=== PATIENT | male | born 1965 | race Two or more races ===

== ENCOUNTER 2020-06-27 22:11 | Inpatient (IN) | payer OTHER ==
[~2020-06-27] VITALS: Ht 162.6 cm; Wt 81.3 kg
[2020-06-28 02:10] VITALS: BP 146/87
--- NOTE | 2020-06-28 02:20 | NUR ---
RN ADMITTING NOTES PATIENT RECEIVED DIRECT ADMIT FROM [facility] VIA GURNEY ACCOMPANIED BY TRANSPORTERS. PATIENT A/O X 4, STABLE ON RA WITH BREATHING EVEN AND UNLABORED, NO SOB NOTED. NO SIGNS OF ACUTE DISTRESS. NO COMPLAINTS OF PAIN OR DISCOMFORT AT THE MOMENT. IV LOCATED ON [facility] #18. BELONGINGS ACCOUNTED FOR. VITALS TAKEN. SKIN ASSESSMENT DONE. PATIENT ORIENTED TO ROOM AND STAFF. SAFETY PRECAUTIONS IN PLACE WITH BED IN LOWEST POSITION, CALL LIGHT WITHIN REACH, BREAKS ON, SIDE RAILS UP. AWAITING ADMITTING ORDERS.
[2020-06-28] MEDS ORDERED: HYDROMORPHONE INJ 2 MG/ML DISP.SYRIN IV PRN (03:00)
[2020-06-28] MEDS ORDERED: Z GUARD REMEDY 2 OZ OINT TP PRN (03:00)
[2020-06-28] MEDS ORDERED: ACETAMINOPHEN 325 MG TABLET PO PRN (03:00)
[2020-06-28] MEDS ORDERED: ZOLPIDEM TARTRATE 5 MG TABLET PO PRN (03:00)
[2020-06-28] MEDS ORDERED: IV NS 0.9% 1,000 ML IV PRN (03:00)
[2020-06-28] MEDS ORDERED: ONDANSETRON HCL/PF 4 MG/2 ML VIAL IVP PRN (03:00)
[2020-06-28] MEDS ORDERED: MAGNESIUM HYDROXIDE 30 ML UDC PO PRN (03:00)
[2020-06-28] MEDS ORDERED: HYDROCODONE/APAP 5/325MG TABLET PO PRN (03:00)
[2020-06-28] MEDS ORDERED: MAG HYDROX/AL HYDROX/SIMETH 30 ML UDC PO PRN (03:00)
[2020-06-28] MEDS ORDERED: PIPERACILLIN /TAZOBACTAM 3.375 G VIAL IV ONE (04:18)
[2020-06-28] MEDS ORDERED: PIPERACILLIN /TAZOBACTAM 3.375 G in IV D5W 50 ML IV ONE (04:30)
[2020-06-28] MEDS ORDERED: PIPERACILLIN /TAZOBACTAM 3.375 G in IV D5W 50 ML IV SCH (06:00)
--- NOTE | 2020-06-28 06:54 | NUR ---
RN CLOSING NOTES PATIENT IN BED RESTING A/O X 4. ON RA WITH BREATHING EVEN AND UNLABORED, NO SOB NOTED. NO SIGNS OF ACUTE DISTRESS. NO COMPLAINTS OF PAIN OR DISCOMFORT. IV LOCATED ON L AC #18 RUNNING NS @ 90 ML/HR. PATIENT KEPT NPO THROUGHOUT THE NIGHT. SAFETY PRECAUTIONS IN PLACE WITH BED IN LOWEST POSITION, CALL LIGHT WITHIN REACH, BREAKS ON, SIDE RAILS UP. WILL ENDORSE TO ONCOMING SHIFT ABOUT EFREN.
--- NOTE | 2020-06-28 07:15 | NUR ---
MS RN NOTES PATIENT IN BED , HEAD OF BED ELEVATED , ALERT ORIENTED X 4. NO ACUTE DISTRESS NOTED. BREATHING UNLABORED. NO SOB NOTED. IV ACCESS PATENT AND INTACT, NO REDNESS NO SWELLING , NO BLEEDING NOTED. SAFETY MEASURES IN PLACE. CALL LIGHT WITHIN REACH. WILL CONTINUE TO MONITOR ACCORDINGLY.
[2020-06-28 08:00] VITALS: BP 106/72
--- NOTE | 2020-06-28 09:08 | NUR ---
WOUND CARE CONSULT: PT PRESENTS WITH PERIANAL/PERINEAL REDNESS, PRESENT ON ADMISSION. NO DRAINAGE NOTED AT THIS TIME. PER PT REPORT, THE AREA SPONTANEOUSLY DRAINED THIS AM WHEN HE WAS IN THE BATHROOM. PT IS CONTINENT AND AMBULATORY. PER RN, DR GUTIÉRREZ WAS CALLED FOR SURGICAL CONSULT BY CARRILLO SHABAZZ NP. WILL SEE PRN.
[2020-06-28] MEDS ORDERED: IBUP-1957 PO (09:17)
[2020-06-28 09:35] LABS: BASOPHILS % (AUTO) 0.5 % (0.0-2.0); EOSINOPHILS % (AUTO) 2.2 % (0.0-6.0); HEMATOCRIT 39 % (39-51); HEMOGLOBIN 13.2 g/dL (13.5-17.5); LYMPHOCYTES # (AUTO) 1.7 /CMM (0.8-4.8); LYMPHOCYTES % (AUTO) 28.3 % (20.0-44.0); MEAN CORPUSCULAR HGB CONC 34 g/dl (31.0-36.0); MEAN CORPUSCULAR VOLUME 92 fL (80-96); MONOCYTES # (AUTO) 0.4 /CMM (0.1-1.30); MONOCYTES % (AUTO) 7.4 % (2.0-12.0); NEUTROPHILS # (AUTO) 3.6 /CMM (1.8-8.9); NEUTROPHILS % (AUTO) 61.6 % (43.0-81.0); PLATELET COUNT (AUTO) 140 /CMM (150-450); RED BLOOD CELL COUNT(AUTO) 4.25 MIL/uL (4.5-6.0); WHITE BLOOD COUNT (AUTO) 5.9 K/uL (4.3-11.0)
[2020-06-28 09:45] LABS: CALCIUM, SERUM 8.5 mg/dL (8.5-10.1); CREATININE 0.8 mg/dL (0.6-1.3); POTASSIUM 3.9 mmol/L (3.5-5.1)
[2020-06-28 09:51] LABS: ALBUMIN 3.3 g/dL (3.4-5.0); BILIRUBIN,TOTAL 1.5 mg/dL (0.2-1.0); MAGNESIUM 2.1 mg/dL (1.8-2.4); PHOSPHORUS 3.5 mg/dL (2.5-4.9); TOTAL PROTEIN, SERUM 7.4 g/dL (6.4-8.2)
--- NOTE | 2020-06-28 11:56 | NUR ---
MS RN NOTES PATIENT SEEN AND EVALUATED BY ERIK SALGUERO, WITH ORDER TO DISCONTINUE NPO AND CHANGE DIET TO REGULAR, NO SURGERY NEEDED AT THIS TIME. ORDERS CLARIFIED AND READ BACK WITH ERIK SALGUERO, NOTED AND CARRIED OUT
[2020-06-28] MEDS: METRONIDAZOLE 500 MG TABLET PO SCH ×2 (12:52→21:03)
[2020-06-28] MEDS: PIPERACILLIN /TAZOBACTAM 3.375 G in IV D5W 100 ML IV SCH ×2 (12:52→20:07)
--- NOTE | 2020-06-28 19:00 | NUR ---
MS RN NOTES PATIENT IN BED ALERT ORIENTED X 4. NO ACUTE DISTRESS NOTED. BREATHING UNLABORED. NO SOB NOTED. IV ACCESS PATENT AND INTACT, NO REDNESS NO SWELLING , NO BLEEDING NOTED. NEEDS ATTENDED AND ANTICIPATED. SAFETY MEASURES IN PLACE. CALL LIGHT WITHIN REACH. WILL ENDORSE TO NIGHT NURSE FOR CONTINUITY OF CARE.
--- NOTE | 2020-06-28 19:30 | NUR ---
MS/RN OPENING NOTES RECEIVED PATIENT IN BED, RESTING. PATIENT IS ALERT AND ORIENTED X 4. PATIENT ON ROOM AIR, TOLERATING WELL. NO SIGNS OF SOB OR RESPIRATORY DISTRESS NOTED. PATIENT STATES NO PAIN AT THIS TIME. PATIENT HAS LIGHT AC IV 18G INTACT RUNNING NS AT 90 ML/HR. NO SIGNS OF DISTRESS NOTED. SAFETY MEASURES ARE IN PLACE, BED IS LOCKED AND PLACED IN THE LOW POSITION, SIDE RAILS UP X 2. CALL LIGHT IS WITHIN REACH. WILL MONITOR THROUGH OUT SHIFT.
[2020-06-28 20:00] VITALS: BP 124/66
[2020-06-29] MEDS: PIPERACILLIN /TAZOBACTAM 3.375 G in IV D5W 100 ML IV SCH ×2 (03:42→12:46)
[2020-06-29] MEDS: METRONIDAZOLE 500 MG TABLET PO SCH ×2 (05:06→13:06)
--- NOTE | 2020-06-29 06:35 | NUR ---
MS/RN CLOSING NOTES PATIENT IN BED, SLEEPING, EASY TO WAKE. PATIENT IS ALERT AND ORIENTED X 4. PATIENT ON ROOM AIR, TOLERATING WELL. NO SIGNS OF SOB OR RESPIRATORY DISTRESS NOTED. PATIENT STATES NO PAIN AT THIS TIME. PATIENT HAS LEFT AC IV 18G INTACT RUNNING NS AT 90 ML/HR. NO SIGNS OF DISTRESS NOTED. ALL NEEDS HAVE BEEN MET DURING SHIFT. SAFETY MEASURES ARE IN PLACE, BED IS LOCKED AND PLACED IN THE LOW POSITION, SIDE RAILS UP X 2. CALL LIGHT IS WITHIN REACH. WILL ENDORSE CARE TO DAY SHIFT NURSE.
[2020-06-29 06:56] LABS: BASOPHILS % (AUTO) 0.9 % (0.0-2.0); HEMATOCRIT 40 % (39-51); HEMOGLOBIN 13.7 g/dL (13.5-17.5); LYMPHOCYTES # (AUTO) 1.8 /CMM (0.8-4.8); LYMPHOCYTES % (AUTO) 37.8 % (20.0-44.0); MEAN CORPUSCULAR HGB CONC 34 g/dl (31.0-36.0); MEAN CORPUSCULAR VOLUME 91 fL (80-96); MONOCYTES # (AUTO) 0.3 /CMM (0.1-1.30); MONOCYTES % (AUTO) 5.9 % (2.0-12.0); NEUTROPHILS # (AUTO) 2.5 /CMM (1.8-8.9); NEUTROPHILS % (AUTO) 52.4 % (43.0-81.0); PLATELET COUNT (AUTO) 152 /CMM (150-450); RED BLOOD CELL COUNT(AUTO) 4.42 MIL/uL (4.5-6.0); WHITE BLOOD COUNT (AUTO) 4.7 K/uL (4.3-11.0)
--- NOTE | 2020-06-29 07:20 | NUR ---
ms rn received on bed,awake,alert,oriented x4,not in any form of distress, respirations even and unlabored,no sob noted, lungs are clear,abdomen soft,positive bowel sounds,denies pain at this time,all needs attended.
[2020-06-29 07:45] LABS: ALBUMIN 3.4 g/dL (3.4-5.0); BILIRUBIN,TOTAL 1.2 mg/dL (0.2-1.0); CALCIUM, SERUM 8.8 mg/dL (8.5-10.1); CREATININE 0.8 mg/dL (0.6-1.3); MAGNESIUM 2.2 mg/dL (1.8-2.4); POTASSIUM 3.9 mmol/L (3.5-5.1); TOTAL PROTEIN, SERUM 7.8 g/dL (6.4-8.2)
--- NOTE | 2020-06-29 08:50 | NUR ---
ms vega breakfast served, due meds given,tolerated well.
[2020-06-29] MEDS ORDERED: IBUP-1957 PO (10:07)
--- NOTE | 2020-06-29 13:00 | NUR ---
ms rn was seen by carey gipson,no order at this time.
[2020-06-29] MEDS ORDERED: LEVO750T46 PO (13:22)
[2020-06-29] MEDS ORDERED: METR500T PO (13:22)
--- NOTE | 2020-06-29 13:48 | NUR ---
ms rn on bed, no distress, to be discharge today.
[2020-06-29] MEDS ORDERED: IBUPROFEN 400 MG TABLET PO PRN (15:30)
--- NOTE | 2020-06-29 16:30 | NUR ---
ms rn patient on bed ready for discharge,waiting for family to pick him up, patient refused to take picture of his rectum,said was done already.
--- NOTE | 2020-06-29 17:35 | NUR ---
ms rn patient went home w/ prescription,all needs attended.
== END 2020-06-29 17:45 | disposition home or self-care (01) | DRG 254 ==
LOC: MED 06-28 01:54
DX: K61.1 Rectal abscess (principal); D69.6 Thrombocytopenia, unspecified; E88.09 Other disorders of plasma-protein metabolism, not elsewhere classified; E80.6 Other disorders of bilirubin metabolism
CPT/HCPCS: 36415; 71045-TC; 80053-TC; 83735-TC; 84100-TC; 85025-TC; 87081-TC; 93307-TC; G0378; J2543; J7030; J7060